=== PATIENT | female | born 1980 | race Caucasian/White ===

== ENCOUNTER → 2017-01-30 | Outpatient (CLI) | payer BC ==
[2010-10-01 19:08] VITALS: BP 116/64
--- NOTE | 2017-01-30 11:51 | DI ---
History: Wrist pain Comparison: No previous sonographic examinations the breast available for comparison Findings: Ultrasound examination of the breast was performed for evaluation of pain. Parenchymal tissue is normal in appearance. There are no echogenic or anechoic lesions in the breast. Impression Unremarkable ultrasound examination of the breast
--- NOTE | 2017-01-30 12:09 | DI ---
History: Wrist pain Comparison: None Multiple views of the left breast, including axillary tail view were obtained. There is moderate fibroglandular tissue. There are no dominant densities or lesions. There is no architectural distortion. There are no suspicious calcifications in the breasts. There is no skin thickening. There is no nipple retraction. Impression Negative left breast mammogram [facility] one
== END ==
LOC: MAMMO 10:50
PROVIDERS: ATTEND Nurse Practitioner Family
DX: N64.4 Mastodynia (principal)
CPT/HCPCS: 76641; G0206

== ENCOUNTER → 2017-02-08 | Outpatient (CLI) | payer BC ==
[2010-10-01 19:08] VITALS: BP 116/64
[2017-02-08 11:57] LABS: BILIRUBIN,URINE NEGATIVE (NEG); CLARITY,URINE CLEAR (CLEAR); COLOR,URINE YELLOW; GLUCOSE, URINE (UA) NEGATIVE (NEG); NITRATE,URINE NEGATIVE (NEG); OCCULT BLOOD,URINE SMALL (NEG); PROTEIN,URINE NEGATIVE (NEG); UROBILINOGEN,URINE 0.2 mg/dL (0.2)
[2017-02-08 12:55] LABS: URINE SAMPLE TYPE CLEAN CATCH URINE
[2017-02-08 12:56] LABS: BACTERIA,URINE FEW; RBC,URINE 0-3 /hpf; SQUAMOUS EPITHELIAL CELL,UR RARE
== END ==
LOC: LAB 11:45
PROVIDERS: ATTEND Family Medicine
DX: R30.0 Dysuria (principal)
CPT/HCPCS: 81001